=== PATIENT | female | born 1995 | race Caucasian/White ===

== ENCOUNTER 2018-10-20 00:09 | Emergency (ER) | payer OTHER ==
[~2018-10-20] VITALS: Ht 175.3 cm; Wt 49.8 kg
[2018-10-20 00:17] VITALS: BP 112/68
== END 2018-10-20 02:55 | disposition home or self-care (01) ==
LOC: ER 00:11
DX: G89.29 Other chronic pain (principal); R68.84 Jaw pain; F15.90 Other stimulant use, unspecified, uncomplicated
CPT/HCPCS: 99281